=== PATIENT | female | born 1980 | race Caucasian/White ===

== ENCOUNTER → 2016-07-07 | Outpatient (CLI) | payer OTHER ==
[~2016-07-07] VITALS: Ht 162.6 cm; Wt 87.3 kg
[~2016-07-07] MED LIST: 24HOUR ALLERGY10 MG PO; AUGMENTIN875 MG PO; BACTRIM,SEPT1 TABLET PO; CIPRO500 MG PO; DEPO-PROVER150 MG/ML IM; ERYTHROMYC1 APPLICAT LEFT EYE; FEXOFENADINE H180 MG PO; KEFLEX500 MG PO; LAMICTAL100 MG PO; LAMICTAL150 M1 PO; MACROBID100 MG PO; METOCLOPRAMIDE H5 MG PO; MIRALAX17 GM PO; MOTRIN800 MG PO; NAPROSYN-EC500 MG PO; NOHOMEMEDS; NORCO 5/3251 TABLET PO; OMEPRAZOLE40 M1 PO; PREDNISONE20 MG PO; PYRIDIUM100 MG PO; TRAMADOL HCL50 MG PO; ZOFRAN4 MG PO; ZOFRAN8 MG PO
== END | disposition home or self-care (01) ==
LOC: AMB 13:09
DX: K22.70 Barrett's esophagus without dysplasia (principal); K21.9 Gastro-esophageal reflux disease without esophagitis; R11.0 Nausea; K29.70 Gastritis, unspecified, without bleeding; K31.7 Polyp of stomach and duodenum; R53.82 Chronic fatigue, unspecified; K59.09 Other constipation; E78.1 Pure hyperglyceridemia; E78.5 Hyperlipidemia, unspecified; E66.3 Overweight; Z68.32 Body mass index [BMI] 32.0-32.9, adult; R73.09 Other abnormal glucose; Z88.1 Allergy status to other antibiotic agents; Z82.5 Family history of asthma and other chronic lower respiratory diseases; Z82.49 Family history of ischemic heart disease and other diseases of the circulatory system; Z84.1 Family history of disorders of kidney and ureter; Z82.0 Family history of epilepsy and other diseases of the nervous system; Z83.3 Family history of diabetes mellitus; Z80.1 Family history of malignant neoplasm of trachea, bronchus and lung; Z80.3 Family history of malignant neoplasm of breast
CPT/HCPCS: 88305; 88342 TC; J2250

== ENCOUNTER 2016-11-03 23:04 | Emergency (ER) | payer OTHER ==
[~2016-11-03] VITALS: Ht 162.6 cm; Wt 83.4 kg
[2016-11-04 00:40] LABS: HEMATOCRIT 41.3 % (36.0-46.0); MCHC 32.9 G/DL (30.0-36.0); MCV 91.2 FL (83-99); MEAN PLAT.VOLUME 10.2 uM^3 (9.5-12.4); PLATELET COUNT 280 K/uL (156-360); RBC DIS.WIDTH-CV 13.6 % (11.8-14.6); RBC DIS.WIDTH-SD 45.8 % (39-53); RED BLOOD COUNT 4.53 M/uL (3.80-5.20); WHITE BLOOD COUNT 10.3 K/uL (4.1-10.2)
[2016-11-04 00:56] LABS: CHLORIDE 111 mEq/L (99-109); POTASSIUM 4.4 mEq/L (3.7-5.4); SODIUM 142 mEq/L (136-147)
[2016-11-04 00:58] LABS: GLUCOSE 106 mg/dL (70-99)
[2016-11-04 00:59] LABS: ANION GAP 9 MEQ/L (2-14)
[2016-11-04 01:00] LABS: TOTAL BILIRUBIN 0.5 mg/dL (0.0-1.0)
[2016-11-04 01:01] LABS: ALKALINE PHOSPHATASE 66 IU/L (3-129)
[2016-11-04 01:02] LABS: GFR ESTIMATE (CALCULATED) > 59 mL/min/
[2016-11-04 01:03] LABS: UREA NITROGEN (BUN) 12 mg/dL (9-23)
[2016-11-04 01:05] LABS: LIPASE 27 U/L (1.0-51.0)
[2016-11-04] MEDS ORDERED: ZOFRAN ODT4 MG PO (01:11)
[2016-11-04 01:13] LABS: QUANTITATIVE HCG < 4.0 MIU/ML
[2016-11-04 01:24] VITALS: BP 158/85
== END 2016-11-04 01:25 | disposition home or self-care (01) ==
LOC: EME 23:04
DX: K21.9 Gastro-esophageal reflux disease without esophagitis (principal)
CPT/HCPCS: 80053; 83690; 84702; 85027; 99281; 99283

== ENCOUNTER → 2017-07-06 | Outpatient (CLI) | payer OTHER ==
[~2017-07-06] MED LIST changes: +ZOFRAN ODT4 MG PO
== END | disposition home or self-care (01) ==
LOC: NUC 08:30
DX: K31.84 Gastroparesis (principal)
CPT/HCPCS: 78264; A9541